=== PATIENT | female | born 1965 | race Caucasian/White ===

== ENCOUNTER 2019-07-16 16:38 | Emergency (ER) | payer MEDICAID ==
[2019-07-16] MEDS ORDERED: LORazepam 2 MG/ML SDV IVPUSH ONE (16:41)
[2019-07-16] MEDS ORDERED: Acetaminophen 325 MG Tab PO ONE (16:41)
[2019-07-16] MEDS ORDERED: Dextrose 5%-0.9% NaCl 1,000 ML IV SCH ×2 (16:45→17:45)
--- NOTE | 2019-07-16 16:47 | EDM.PDOC ---
ED HPI GENERAL MEDICAL PROBLEM - General Chief Complaint: Neuro Symptoms/Deficits Stated Complaint: YESSICA AMB Time Seen by Provider: 07/16/19 16:40 Source of Information: Reports: Patient, EMS, Police History Limitations: Reports: No Limitations - History of Present Illness INITIAL COMMENTS - FREE TEXT/NARRATIVE: 53-year-old female presents to the ED apparently after having a grand mal seizure in her home. Apparently her children indicate that she has been acting abnormally all day and is questionable whether she has had other seizures or more twitches. Apparently there is recent changes to her antiseizure medication to Lamictal 200 mg tablet 2 tablets twice daily. The bottle that she presents with has just been started. Clear if she was weaning off of a another anticonvulsant agent prior to starting the Lamictal. At any rate she was very combative on scene and police officers had to handcuff her and she had to be strapped to the gurney with duct tape both legs and hands to control herself and prevent other people from getting hurt. Paramedics did administer intranasal Versed x2 doses or 2 mg. Patient presents mildly postictal and is not able to answer all questions. She does follow commands. He was calm at the time of our exam and therefore her restraints were all reduced and taken away. Handcuffs were removed by campus police officer. She does have an IV established in her left arm. On initial assessment she feels very warm to palpation. Clinically I believe she is febrile. Denies cough or sputum production. No one if she has been exposed to COVID 19. Children who were on scene indicated that she did not fall or get hurt. Onset: Today Onset Date: 07/16/19 Onset Time: 15:45 Duration: Minutes: (X-rays summoned just before 1600 hrs.) Location: Reports: Generalized (It was combative and postictal on scene.) Quality: Reports: Other (Prolonged grand mal seizure estimated to have lasted longer than 5 minutes by children.) Severity: Moderate Improves with: Reports: Other (And improved over time and after 2 mg of intranasal Versed.) Worsens with: Reports: None Context: Reports: Other (Break through seizure). Denies: Activity, Exercise, Lifting, Sick Contact, Trauma Associated Symptoms: Reports: Confusion, Malaise, Weakness, Other (Feels febrile ). Denies: Chest Pain, Cough, cough w sputum Treatments [employer]: Reports: Other (see below) (Paramedics administered 2 mg of Versed intranasally.) - Related Data Allergies Allergy/AdvReac Type Severity Reaction Status Date / Time No Known Allergies Allergy Verified 07/16/19 16:47 Home Meds: Home Meds lamoTRIgine [Lamotrigine] 400 mg PO BID 07/16/19 [History] Past Medical History Neurological History: Reports: Seizure ED ROS GENERAL - Review of Systems Review Of Systems: See Below Constitutional: Reports: Fever, Malaise, Weakness, Fatigue. Denies: Chills HEENT: Reports: No Symptoms Respiratory: Reports: No Symptoms Cardiovascular: Reports: No Symptoms Endocrine: Reports: Fatigue GI/Abdominal: Reports: Constipation : Reports: No Symptoms Musculoskeletal: Reports: No Symptoms, Other Skin: Reports: No Symptoms Neurological: Reports: Confusion (Confused i.e. postictal state.), Headache, Weakness. Denies: Numbness, Syncope, Tingling Psychiatric: Reports: Anxiety Hematologic/Lymphatic: Reports: No Symptoms Immunologic: Reports: No Symptoms - Physical Exam Exam: See Below Exam Limited By: Altered Mental Status (She is mildly postictal. She obeys all commands and is able to answer simple questions.) General Appearance: Lethargic (Is mildly lethargic and postictal), Mild Distress , Other (Says she does not recall what is happened to her.) Eye Exam: Bilateral Eye: Normal Fundi, Normal Inspection, PERRL Throat/Mouth: Normal Inspection, Normal Oropharynx, Evidence of Tongue Biting ( A superficial laceration to the left anterior tongue.), Other (Dental injuries) Head Exam: Atraumatic, Normocephalic, Other Neck: Normal Inspection (Overt signs of any head or facial trauma.), Supple, Non -Tender, Full Range of Motion. No: Carotid Bruit, Lymphadenopathy (L), Lymphadenopathy (R) Respiratory/Chest: Lungs Clear, Normal Breath Sounds, No Accessory Muscle Use, Chest Non-Tender, Respiratory Distress (Tachypnea due to hyperventilation state postictal state.) Cardiovascular: Normal Peripheral Pulses, Regular Rate, Rhythm, No Edema, No Gallop (Tachycardia at rest), No Murmur, No Rub, Tachycardia GI/Abdominal: Normal Bowel Sounds, Soft, Non-Tender, No Organomegaly, No Mass, Pelvis Stable Neuro Exam (Abbreviated): CN II-XII Intact, No Motor/Sensory Deficits. No: Oriented (Oriented to time and place), Normal Cognition, Normal Gait DTR: 0: Achilles (R), Achilles (L), 1+: Bicep (R), Bicep (L), Patella (R), Patella (L) Back Exam: Normal Inspection, Full Range of Motion. No: CVA Tenderness (L), CVA Tenderness (R) Extremities: Normal Inspection, Normal Range of Motion, Non-Tender, No Pedal Edema, Normal Capillary Refill Psychiatric: Flat Affect, Other (Used in postictal) Skin Exam: Warm, Dry, Intact, Normal Color, No Rash, Other (This feels really warm to palpation and nurses recorded temperature is 38.0 indicating a low- grade fever) Course - Vital Signs Last Recorded V/S: Last Vital Signs Temp 38.0 C 07/16/19 16:41 Pulse 109 H 07/16/19 16:41 Resp 20 07/16/19 16:41 BP 139/75 07/16/19 16:41 Pulse Ox 95 07/16/19 16:41 - Orders/Labs/Meds Orders: Active Orders 24 hr Category Date Time Status Chest 1V Frontal [CR] Stat Exams 07/16/19 16:43 Taken LAMOTRIGINE, SERUM [REF] Stat Lab 07/16/19 16:58 Received Dextrose 5%-0.9% NaCl [Dextrose 5%-Normal Saline] 1,000 Med 07/16/19 17:45 Active ml IV ASDIRECTED Medication Orders Dextrose/Sodium Chloride (Dextrose 5%-Normal Saline) 1,000 mls @ 999 mls/hr IV ASDIRECTED GILA Labs: Laboratory Tests 07/16/19 07/16/19 07/16/19 Range/Units 16:58 16:58 16:58 WBC 10.29 H (3.98-10.04) K/mm3 RBC 4.35 (3.98-5.22) M/mm3 Hgb 13.6 (11.2-15.7) gm/dl Hct 40.6 (34.1-44.9) % MCV 93.3 (79.4-94.8) fl MCH 31.3 (25.6-32.2) pg MCHC 33.5 (32.2-35.5) g/dl RDW Std Deviation 41.3 (36.4-46.3) fL Plt Count 263 (182-369) K/mm3 MPV 9.1 L (9.4-12.3) fl Neutrophils % (Manual) 93 H (40-60) % Band Neutrophils % 0 (0-10) % Lymphocytes % (Manual) 7 L (20-40) % Atypical Lymphs % 0 % Monocytes % (Manual) 0 L (2-10) % Eosinophils % (Manual) 0 L (0.7-5.8) % Basophils % (Manual) 0 L (0.1-1.2) Platelet Estimate Adequate RBC Morph Comment Normal Sodium 137 (136-145) mEq/L Potassium 3.7 (3.5-5.1) mEq/L Chloride 101 (98-107) mEq/L Carbon Dioxide 20 L (21-32) mEq/L Anion Gap 19.7 H (5-15) BUN 18 (7-18) mg/dL Creatinine 1.1 H (0.55-1.02) mg/dL Est Cr Clr Drug Dosing 58.84 mL/min Estimated GFR (MDRD) 52 (>60) mL/min BUN/Creatinine Ratio 16.4 (14-18) Glucose 128 H (74-106) mg/dL Lactic Acid 4.6 H* (0.4-2.0) mmol/L Calcium 8.4 L (8.5-10.1) mg/dL Total Bilirubin 0.4 (0.2-1.0) mg/dL AST 17 (15-37) U/L ALT 22 (14-59) U/L Alkaline Phosphatase 90 (46-116) U/L C-Reactive Protein <0.2 (<1.0) mg/dL Total Protein 7.6 (6.4-8.2) g/dl Albumin 4.0 (3.4-5.0) g/dl Globulin 3.6 gm/dL Albumin/Globulin Ratio 1.1 (1-2) Urine Color (Yellow) Urine Appearance (Clear) Urine pH (5.0-8.0) Ur Specific [place] (1.005-1.030) Urine Protein (Negative) Urine Glucose (UA) (Negative) Urine Ketones (Negative) Urine Occult Blood (Negative) Urine Nitrite (Negative) Urine Bilirubin (Negative) Urine Urobilinogen (0.2-1.0) Ur Leukocyte Esterase (Negative) Urine RBC (0-5) /hpf Urine WBC (0-5) /hpf Ur Squamous Epith Cells (0-5) /hpf Urine Bacteria (FEW) /hpf Urine Mucus (FEW) /hpf Urine Opiates Screen (QWPYHR=925) Ur Buprenorphine Scrn (CUTOFF=10) Ur Oxycodone Screen (EHS9TD=479) Urine Methadone Screen (VSZEWH=335) Ur Propoxyphene Screen (LAVPUF=988) Ur Barbiturates Screen (OHUYLF=471) Ur Tricyclics Screen (HMSFOD=626) Ur Phencyclidine Scrn (CUTOFF=25) Ur Amphetamine Screen (ZEDUHP=363) U Methamphetamines Scrn (CSAKVT=436) U Benzodiazepines Scrn (DXVHBL=280) U Cocaine Metab Screen (RLXETW=935) U Marijuana (THC) Screen (CUTOFF=50) SARS-CoV-2 RNA (RT-PCR) (NEGATIVE) 07/16/19 07/16/19 07/16/19 Range/Units 17:20 18:18 18:18 WBC (3.98-10.04) K/mm3 RBC (3.98-5.22) M/mm3 Hgb (11.2-15.7) gm/dl Hct (34.1-44.9) % MCV (79.4-94.8) fl MCH (25.6-32.2) pg MCHC (32.2-35.5) g/dl RDW Std Deviation (36.4-46.3) fL Plt Count (182-369) K/mm3 MPV (9.4-12.3) fl Neutrophils % (Manual) (40-60) % Band Neutrophils % (0-10) % Lymphocytes % (Manual) (20-40) % Atypical Lymphs % % Monocytes % (Manual) (2-10) % Eosinophils % (Manual) (0.7-5.8) % Basophils % (Manual) (0.1-1.2) Platelet Estimate RBC Morph Comment Sodium (136-145) mEq/L Potassium (3.5-5.1) mEq/L Chloride (98-107) mEq/L Carbon Dioxide (21-32) mEq/L Anion Gap (5-15) BUN (7-18) mg/dL Creatinine (0.55-1.02) mg/dL Est Cr Clr Drug Dosing mL/min Estimated GFR (MDRD) (>60) mL/min BUN/Creatinine Ratio (14-18) Glucose (74-106) mg/dL Lactic Acid (0.4-2.0) mmol/L Calcium (8.5-10.1) mg/dL Total Bilirubin (0.2-1.0) mg/dL AST (15-37) U/L ALT (14-59) U/L Alkaline Phosphatase (46-116) U/L C-Reactive Protein (<1.0) mg/dL Total Protein (6.4-8.2) g/dl Albumin (3.4-5.0) g/dl Globulin gm/dL Albumin/Globulin Ratio (1-2) Urine Color Yellow (Yellow) Urine Appearance Clear (Clear) Urine pH 7.0 (5.0-8.0) Ur Specific [place] 1.025 (1.005-1.030) Urine Protein 2+ H (Negative) Urine Glucose (UA) Negative (Negative) Urine Ketones Negative (Negative) Urine Occult Blood 1+ H (Negative) Urine Nitrite Negative (Negative) Urine Bilirubin Negative (Negative) Urine Urobilinogen 0.2 (0.2-1.0) Ur Leukocyte Esterase Negative (Negative) Urine RBC 5-10 H (0-5) /hpf Urine WBC 0-5 (0-5) /hpf Ur Squamous Epith Cells 5-10 H (0-5) /hpf Urine Bacteria Few (FEW) /hpf Urine Mucus Moderate H (FEW) /hpf Urine Opiates Screen Negative (LWXRWH=280) Ur Buprenorphine Scrn Negative (CUTOFF=10) Ur Oxycodone Screen Negative (BAZ2NO=164) Urine Methadone Screen Negative (HQAADU=877) Ur Propoxyphene Screen Negative (IDOXHX=578) Ur Barbiturates Screen Negative (JZOCIO=726) Ur Tricyclics Screen Negative (CSFHMY=980) Ur Phencyclidine Scrn Negative (CUTOFF=25) Ur Amphetamine Screen Negative (LWXFKV=171) U Methamphetamines Scrn Negative (MWNIUP=521) U Benzodiazepines Scrn Negative (IFNPNR=107) U Cocaine Metab Screen Negative (BYVOVV=140) U Marijuana (THC) Screen Presumptive positive H (CUTOFF=50) SARS-CoV-2 RNA (RT-PCR) Negative (NEGATIVE) Meds: Medications Generic Name Dose Route Start Last Admin Trade Name Freq PRN Reason Stop Dose Admin Dextrose/Sodium Chloride 1,000 mls @ 999 mls/hr 07/16/19 17:45 Dextrose 5%-Normal Saline IV ASDIRECTED GILA Discontinued Medications Generic Name Dose Route Start Last Admin Trade Name Brooks PRN Reason Stop Dose Admin Acetaminophen 975 mg 07/16/19 16:41 07/16/19 16:59 Tylenol PO 07/16/19 16:42 975 mg NOW ONE Administration Dextrose/Sodium Chloride 1,000 mls @ 500 mls/hr 07/16/19 16:45 07/16/19 16:57 Dextrose 5%-Normal Saline IV 500 mls/hr ASDIRECTED GILA Administration Ibuprofen 600 mg 07/16/19 19:04 Motrin PO 07/16/19 19:05 ONETIME ONE Lorazepam 1 mg 07/16/19 16:41 07/16/19 16:58 Ativan IVPUSH 07/16/19 16:42 1 mg ONETIME ONE Administration - Radiology Interpretation Free Text/Narrative:: 53-year-old female presents to the ED after suffering a prolonged grand mal seizure in her home. Family members are yet to attend the ED to fill in the blanks. Paramedics and police officers were summoned to the home as she became extremely violent post seizure event and required to be handcuffed by police as well as taped to the rtorrance by paramedics with the aid of duct tape. She also had her legs taped together. She did receive intranasal Versed x2 mg. An IV has been started in her left arm. Apparently she is undergone recent changes to her antiseizure medication She currently has a new bottle of Lamictal or lamotrigine 200 mg tablets with orders to take 2 tablets twice daily. It appears to be a brand-new prescription. It is unclear if she was weaning from a another antiseizure medication as well. Nodded her head when asked this question but I not able to confirm this. She does feel febrile on exam. She will be somewhat warm from the seizure and also fighting with police and paramedics. I will have routine labs performed including a COVID 19 screen. Be given Ativan 1 mg IV to help prevent further seizure activity in the ED. - Re-Assessments/Exams Free Text/Narrative Re-Assessment/Exam: 07/16/19 17:07 members a son was not all that helpful in providing information. He states the seizure was certainly grand [place] and lasted more than a couple of minutes. Spoke to the pharmacist who prescribes her medication for her and she indicates that Camryn often was forgetting to take the second dose of her Lamictal daily. Another physician named Dr. Senior changed her to the 200 mg extended release with 4 tablets to be taken once daily at bedtime. Apparently this must of been too expensive for patient felt too much side effects and was discontinued. Dr. Reyes has recently phoned in a prescription for Lamictal 200 mg strength taking 2 twice daily which is what she has been on for the last couple of years. Therefore she may have had a breakthrough seizure from noncompliance with medication and I will send off a Lamictal level today for reference lab. Secondly she does appear to be febrile and this too could have lowered her seizure threshold today. 07/16/19 17:34 Chest x-ray done portably reveals bilateral perihilar infiltrates slightly worse on the right side as compared to the left. Appears to be a 1.5 cm nodule in the left lower lung base. 07/16/19 17:36 Hematology reveals a white count of 10.29. Differential pending hemoglobin is 13.6 with hematocrit of 40.6 platelet count 263,000. Sodium 137 with a potassium of 3.7. Chloride 101 with a bicarb of 20. Anion gap is elevated at 19.7 compared with recent seizure activity BUN is 18 with a creatinine of 1.1. GFR is 52. Glucose 128 lactic acid is elevated at 4.6. Calcium is 8.4 with a total bilirubin is 0.4 liver function is otherwise normal. C-reactive protein is less than 0.2. Total protein 7.6 with an albumin fraction of 4.0 07/16/19 17:45 white blood cell differential reveals 93% neutrophils with no bands cells noted. 07/16/19 18:13 Covid- 19 screen came back negative. She has now just voided and therefore will await urinalysis. 07/16/19 18:59 .Urinalysis shows 2+ proteinuria 1+ occult blood negative leukocyte esterase 5-10 RBCs per high-power field and 0-5 WBCs. Screen is presumptively positive for marijuana. 07/16/19 19:03 reexamination she is developed significant bruising around her wrist where she was fighting with the handcuffs in place. She has full range of motion of her wrists and fingers with no evidence of any bony injuries. These were not present when she arrived in the ED but showed up after the fact she will be discharged to home and advised to continue Motrin 600 mg every 6 hours for fever relief as fever may well have precipitated her seizure tonight. Take her Lamictal as previously prescribed. Departure - Departure Time of Disposition: 19:05 Disposition: Home, Self-Care 01 Condition: Fair Clinical Impression: Breakthrough seizure, Febrile illness, acute, Viral syndrome - Discharge Information *PRESCRIPTION DRUG MONITORING PROGRAM REVIEWED*: Not Applicable *COPY OF PRESCRIPTION DRUG MONITORING REPORT IN PATIENT JILLIAN: Not Applicable Instructions: Viral Illness, Adult, Fever, Adult, [id number] Referrals: PCP,None [Primary Care Provider] - Forms: ED Department Discharge Additional Instructions: Evaluation in the emergency room tonight in regards to a prolonged grand mal seizure at home. The history suggests seizure lasted between 2 and 3 minutes. You were very agitated and confused when the seizure stopped and he required aggressive management with restraints of your arms and legs by handcuffs from police as well as duct tape of your hands wrists and legs to provide appropriate transfer to the hospital. Once you arrived here your aggressive symptoms and agitation had improved. You remained what we call postictal which means slightly confused after his seizure but regain normal cognitive function over 15 to 25 minutes. Were feeling very warm to palpation and suspect fever identified at 38 degrees. Therefore a work-up was carried out to make sure that she did not have the COVID virus and it was negative. Chest x-ray suggests possible viral upper respiratory tract infection. Urinalysis came back normal with no signs of infection. You recieved Tylenol 9 7 5 mg for fever relief at approximately 1700 hrs. and Motrin 600 mg at 1900 hrs. Suggest checking her temperature and taking Motrin 600 mg every 6 hours as needed until fever resolves. If you are still running a fever in 48 hours you need to be rechecked. High fever can sometimes precipitate breakthrough seizure. Continue your Lamictal medicine to 200 mg tablets twice daily as per usual including tonight's dosage. Urine to the ED if any further seizure activity occurs. Sepsis Event Note - Focused Exam Vital Signs: Vital Signs Temp Pulse Resp BP Pulse Ox 07/16/19 16:41 38.0 C 109 H 20 139/75 95 Date Exam was Performed: 07/16/19 Time Exam was Performed: 19:21 - My Orders Last 24 Hours: My Active Orders 07/16/19 16:43 Chest 1V Frontal [CR] Stat 07/16/19 16:58 LAMOTRIGINE, SERUM [REF] Stat 07/16/19 17:45 Dextrose 5%-0.9% NaCl [Dextrose 5%-Normal Saline] 1,000 ml IV ASDIRECTED - Assessment/Plan Last 24 Hours: My Active Orders 07/16/19 16:43 Chest 1V Frontal [CR] Stat 07/16/19 16:58 LAMOTRIGINE, SERUM [REF] Stat 07/16/19 17:45 Dextrose 5%-0.9% NaCl [Dextrose 5%-Normal Saline] 1,000 ml IV ASDIRECTED
[2019-07-16] MEDS ORDERED: Ibuprofen 600 MG Tab PO ONE (19:04)
--- NOTE | 2019-07-17 07:49 | CR ---
Chest: Portable view of the chest was obtained. Comparison: No prior chest imaging is available. Heart size and mediastinum are within normal limits for portable technique. Lungs are hyperinflated which I believe is most likely due to emphysematous change. Nodular density is noted within the right lung base most likely due to overlapping lung markings. No definite acute parenchymal change is seen. Impression: 1. Probable emphysematous change as noted above. 2. Nothing acute is definitely appreciated. Diagnostic code #3 This report was dictated in MDT
== END 2019-07-16 19:30 | disposition home or self-care (01) ==
LOC: JD.ED 16:38
DX: R56.9 Unspecified convulsions (principal); B34.9 Viral infection, unspecified; Z79.899 Other long term (current) drug therapy
CPT/HCPCS: 36415; 71045; 80053; 80175; 80306; 81001; 83605; 85007; 85027; 86140; 87635; 96374; 99284; A9270; J2060; J7042; 99283; U0002